=== PATIENT | female | born 1960 | race Caucasian/White ===

== ENCOUNTER → 2016-12-28 | Outpatient (CLI) | payer OTHER ==
[~2016-12-28] MED LIST: ATEN25TA PO; HYDR-3516 PO; MULT-120 PO; ROSU1TAB8 PO; ZOLP10TA3 PO
[2016-12-28 10:09] LABS: HDL CHOLESTEROL 49.5 MG/DL (40.0-60.0)
== END ==
LOC: CLAB 08:54
PROVIDERS: ATTEND Thoracic Surgery (Cardiothoracic Vascular Surgery)
DX: E78.2 Mixed hyperlipidemia (principal)
CPT/HCPCS: 36415; 80061

== ENCOUNTER → 2017-01-03 | Outpatient (CLI) | payer OTHER | LOC: CLAB 14:27 | PROVIDERS: ATTEND Family Medicine | DX: Z12.4 Encounter for screening for malignant neoplasm of cervix (principal) ==

== ENCOUNTER → 2017-08-09 | Outpatient (CLI) | payer OTHER ==
[2017-08-09 11:10] LABS: BILIRUBIN, URINE NEG (NEG); BLOOD, URINE NEG (NEG); GLUCOSE,URINE NEG (NEG); HYALINE CAST, URINE 1 /lpf (RARE); KETONE, URINE NEG (NEG); MUCUS URINE FEW /lpf (OCC); NITRITE,URINE NEG (NEG); SQUAMOUS EPITHELIAL CELL URINE 2 /hpf (0-5); URINE COLOR YELLOW (YELLW/STRAW); URINE LEUKOCYTE ESTERASE NEG (NEG)
== END ==
LOC: CLAB 10:18
PROVIDERS: ATTEND Thoracic Surgery (Cardiothoracic Vascular Surgery)
DX: N30.90 Cystitis, unspecified without hematuria (principal)
CPT/HCPCS: 81001

== ENCOUNTER → 2017-10-04 | Day surgery (SDC) | payer OTHER ==
[~2017-10-04] MED LIST changes: +PROPOFOL 500 MG/50 ML BTL IV ONE
== END | disposition home or self-care (01) ==
LOC: ESDC 10:21
PROVIDERS: ATTEND Internal Medicine Gastroenterology
DX: Z12.11 Encounter for screening for malignant neoplasm of colon (principal); Z86.010 Personal history of colon polyps; K57.90 Diverticulosis of intestine, part unspecified, without perforation or abscess without bleeding; K64.8 Other hemorrhoids